=== PATIENT | male | born 1950 | race Caucasian/White ===

== ENCOUNTER 2019-07-24 23:05 | Emergency (ER) | payer MEDICARE, OTHER ==
[~2019-07-24] VITALS: Ht 175.3 cm; Wt 81.0 kg
[2019-07-24] MEDS ORDERED: OMNIPAQUE 350 MG/ML, 100ML BOTTLE ONE (23:33)
[2019-07-24 23:37] LABS: MEAN CORPUSCULAR HEMOGLOBIN 33.1 pg (27.5-34.5); MEAN CORPUSCULAR HGB CONC 33.9 g/dL (33.2-36.2); MEAN CORPUSCULAR VOLUME 97.6 fL (81-97); PLATELET COUNT 189 x10^3/uL (130-400); RED CELL DISTRIBUTION WIDTH 13.7 % (9.4-14.8)
--- NOTE | 2019-07-24 23:38 | NUR ---
LATE ENTRY: PT BIB AMBULANCE AFTER ACTING FUNNY AT HOME FOR FAMILY, PER FAMILY. PT REPORTEDLY HAD SEVERAL BOURBON DRINKS TONIGHT AND HAD SOME INSTANCES OF APHASIA. PER FAMILY, PT DRINKS 2-3 COCKTAILS A NIGHT. PRESTROKE ALERT WAS RECEIVED BY EMS AND PT WAS TRANSPORTED FROM HOME. UPON ARRIVAL TO [facility] ED, PT WAS IMMEDIATELY TAKEN TO CT. NIHSS PERFORMED. PT SCORED ZERO AND FOLLOWS ALL COMMAND WITH NO FACIAL DROOP NOTED. PT SLURRING HIS WORDS UPON ARRIVAL BUT IS POSTIVE FOR ETOH. PT TRANSPORTED TO ROOM FROM CT AND ATTACHED TO OFFICE ADMINISTRATION INSTRUCTOR/SPO2/BP MONITORS. ALL VSS. PT BREATHALYZED AND WAS 0.26. PT PROVIDED A WARM BLANKET AT THIS TIME. AT BS. PT TEARFUL AT THIS TIME. AWAITING FURTHER ORDERS FROM ERP. PT AND DENY ANY ADDITIONAL NEEDS AT THIS TIME. Addendum: 07/25/19 at 0116 by CHEMA PT SLEEPING RESP=UNLABORED. FAMILY MEMBER AT BEDSIDE. VS UPDATED.
[2019-07-24 23:55] LABS: ALANINE AMINOTRANSFERASE 39 U/L (12-78); ALBUMIN 3.4 g/dL (3.4-5.0); ANION GAP 9 mmol/L (5-15); CALCIUM 8.2 mg/dL (8.5-10.1); CHLORIDE 108 mmol/L (98-107); CREATININE 0.69 mg/dL (0.7-1.3)
[2019-07-24 23:58] LABS: INTERNATIONAL NORMALIZED RATIO 0.99 (0.93-1.1); PROTHROMBIN TIME 10.5 Seconds (9.6-11.5)
[2019-07-24 23:59] LABS: ALKALINE PHOSPHATASE 50 U/L (45-117); BILIRUBIN,TOTAL 0.5 mg/dL (0.2-1.0); TOTAL PROTEIN 6.3 g/dL (6.4-8.2); TROPONIN I < 0.015 ng/mL (0.000-0.045)
[2019-07-25 00:06] LABS: MD YES
[2019-07-25 00:10] LABS: <PLATELET ESTIMATE> ADEQUATE; <RBC MORPHOLOGY> NORMAL; LYMPH#(MANUAL) 3.33 x10^3/uL (1-3.4); LYMPHS% (MANUAL) 68 % (22-44); MONOS#(MANUAL) 0.39 x10^3/uL (0.3-2.7); MONOS% (MANUAL) 8 % (2-9); REACTIVE LYMPHS # (MANUAL) 0.05 x10^3/uL (0-0); REACTIVE LYMPHS % (MANUAL) 1 % (0-0); SEG#(MANUAL) 1.13 x10^3/uL (1.8-6.8); SEGS% (MANUAL) 23 % (42-75); SMALL PLATELETS 1+
--- NOTE | 2019-07-25 00:12 | NUR ---
REPORT OF PT TO JAUN BARBOZA. ALL QUESTIONS ANSWERED. PT BEING MOVED VIA GURNEY TO ROOM 24 FROM TRAUMA BAY 04
--- NOTE | 2019-07-25 00:15 | NUR ---
REPORT RECEIVED, POC DISCUSSED, CARE ASSUMED. PT MOVED FROM T4 TO 24. AT BEDSIDE.
--- NOTE | 2019-07-25 02:02 | NUR ---
PT DC'D HOME WITH RX X 2 AND UNDERSTANDING OF INSTRUCTIONS. PT PLACED IN WC AND TAKEN TO LOBBY WITH ACCOMPANYING.
[2019-07-25 02:23] VITALS: BP 123/70
== END 2019-07-25 02:25 | disposition home or self-care (01) ==
LOC: ED 23:33
DX: F10.120 Alcohol abuse with intoxication, uncomplicated (principal); R41.82 Altered mental status, unspecified; R00.0 Tachycardia, unspecified; Y90.0 Blood alcohol level of less than 20 mg/100 ml
CPT/HCPCS: 36415; 70450; 70496; 70498; 71045; 80053; 80307; 84484; 85025; 85610; 85730; 93005; 99285; Q9967